=== PATIENT | male | born 1950 | race Caucasian/White ===

== ENCOUNTER 2017-03-15 06:10 | Day surgery (SDC) | payer OTHER ==
[~2017-03-15] VITALS: Ht 170.2 cm; Wt 74.8 kg
[~2017-03-15 06:10] MED LIST: CYCL10TA PO; DURA75DI2 TOP; LORA1TAB12 PO; LYRI150C PO; LYRI200C PO; VITA100054 PO
[2017-03-15] MEDS ORDERED: LR 1,000 ML IV ONE (06:30)
[2017-03-15] MEDS ORDERED: LIDOCAINE 1% MDV 20ML VIAL SC ONE (06:30)
[2017-03-15] MEDS ORDERED: THROMBIN SOLN 5,000 UNITS VIAL As Ordered ONE (07:08)
[2017-03-15] MEDS ORDERED: EPINEPHrine 1MG/10ML SYRINGE 1.5IN As Ordered ONE (07:09)
[2017-03-15] MEDS ORDERED: LIDOCAINE 1% SDV INJ 30 ML VIAL As Ordered ONE (07:09)
[2017-03-15] MEDS ORDERED: LIDOCAINE VISCOUS 2% SOLN 15ML UDC As Ordered ONE (07:09)
[2017-03-15] MEDS ORDERED: CETACAINE SPRAY 20GM (FLOOR STOCK) As Ordered ONE (07:47)
[2017-03-15] MEDS ORDERED: MIDAZOLAM INJ 2 MG/2 ML VIAL (J2250) As Ordered ONE (07:53)
[2017-03-15] MEDS ORDERED: ONDANSETRON 4MG/2ML VIAL (J2405) As Ordered ONE (07:53)
[2017-03-15] MEDS ORDERED: PROPOFOL 200 MG/20 ML VIAL As Ordered ONE (07:53)
[2017-03-15] MEDS ORDERED: fentaNYL 100 MCG/2 ML INJECTION (J3010) As Ordered ONE (07:53)
[2017-03-15] MEDS ORDERED: LIDOCAINE 2% INJ 100 MG/5 ML SDV (FOR ANES.) As Ordered ONE (07:53)
[2017-03-15] MEDS ORDERED: ROCURONIUM BROMIDE 50 MG/5 ML VIAL/SYRINGE As Ordered ONE (07:53)
[2017-03-15] MEDS ORDERED: NEOSTIGMINE 1MG/ML 5 ML SYRINGE (J2710) As Ordered ONE (07:59)
[2017-03-15] MEDS ORDERED: GLYCOPYRROLATE INJ 0.2 MG/ML 2 ML VIAL As Ordered ONE (07:59)
[2017-03-15] MEDS ORDERED: PHENYLephrine HCL 500 MCG/5 ML (100MCG/ML) SYRINGE (J2370) As Ordered ONE ×2 (08:00→08:02)
[2017-03-15] MEDS ORDERED: ePHEDrine SULFATE 25 MG/5 ML(5MG/ML) SYRINGE As Ordered ONE ×2 (08:00→08:02)
[2017-03-15] MEDS ORDERED: SUGAMMADEX SODIUM 500 MG/5 ML VIAL (BRIDION) As Ordered ONE (08:17)
--- NOTE | 2017-03-15 08:59 | RO ---
DATE OF PROCEDURE: 03/15/2017 PREOPERATIVE DIAGNOSIS: Right hilar right upper lobe mass, abnormal chest CT. POSTOPERATIVE DIAGNOSIS: Right upper lobe mass. FINDINGS: Obstructed right upper lobe. PROCEDURE: Bronchoscopy with endobronchial ultrasound and fine-needle aspiration. PROCEDURALIST: Clinton Bernal DO DOCUMENT CONTROL SUPERVISOR: None. ANESTHESIA: General. Please refer to their records for details. ESTIMATED BLOOD LOSS: 5-10 mL. DRAINS: No drains. SPECIMENS OBTAINED: 1. FNA right upper lobe mass. 2. Endobronchial biopsies right upper lobe mass. No observed complications. Postprocedure chest x-ray pending. DESCRIPTION OF PROCEDURE: Consent was reviewed with the patient in the preoperative area. After the risks and benefits of the procedure were discussed in detail again with the patient, he re-consented for the procedure. He was then taken back to OR number [id number]. A time out was performed with two patient identifiers, identifying correct site and correct procedure. General anesthesia was initiated with an 8.5 endotracheal tube. Cetacaine spray was used to lubricate the tube and provide airway anesthetization. 1T180 bronchoscope was then introduced into the endotracheal tube after a second time out identifying correct site and correct procedure, with two patient identifiers. The alexi was fairly sharp. There was abnormalities in the trachea. There was, on the right lateral wall, a distal tumor was seen. The right mainstem bronchus was patent however, the entire right upper lobe was obstructed with mass. This mass did extend over the spur between the right upper lobe and the bronchus intermedius and up into the lateral portion of the right trachea. RB 4 and 5 were patent without endobronchial lesions. RB 6 through 10 were patent without endobronchial lesions. Left mainstem bronchus was normal. LB 1 through 3 was normal without endobronchial lesions. LB 4 and 5 was totally obstructed, I presume it was the area of his prior malignancy. There was pale mucosa surrounding the area. No evidence of tumor extruding from the area. LB 6 through 10 was patent without endobronchial lesions. Due to the vascularity of the right upper lobe mass, I decided to do endobronchial ultrasound with FNA first. Therefore, the 1T180 bronchoscope was removed. The endobronchial ultrasound was inserted. I obtained FNA samples of the right upper lobe mass with on-site cytology suggesting adequate sampling. Tissue was obtained for cell block. After adequate sampling the endobronchial ultrasound was removed and the one 1T180 bronchoscope was reinserted. Hemostasis was assured. I then performed endobronchial biopsies of the right upper lobe mass. After seven endobronchial biopsies, hemostasis was assured and the bronchoscope was removed. The patient was extubated and is in recovery. Postprocedure chest x-ray is pending. There was no observed complications. [facility]
[2017-03-15] MEDS ORDERED: ONDANSETRON 4MG/2ML VIAL (J2405) IV PRN (09:00)
[2017-03-15] MEDS ORDERED: LR 1,000 ML IV SCH (09:00)
[2017-03-15] MEDS ORDERED: fentaNYL 100 MCG/2 ML INJECTION (J3010) IV PRN (09:00)
[2017-03-15 09:06] VITALS: BP 133/68
--- NOTE | 2017-03-15 09:13 | REP ---
Sitting upright portable chest x-ray: Single view. History: Postop in PACU. Findings: An Ajgjtw-C-Oiin catheter is seen in place via the left side with its tip in the expected location of the superior vena cava. Oxygen delivery tubing and EKG monitoring electrodes are seen. There is elevation of the left hemidiaphragm and volume loss in the left hemithorax. A ill-defined soft tissue fullness is seen in the left perihilar region with fibrotic appearing parenchymal markings in the perihilar region. There are similar less prominent changes in the right upper lobe. There is no evidence of pneumothorax or hydrothorax. Cardiomediastinal silhouette is unremarkable. Impression: Bilateral upper lobe perihilar opacities and left perihilar fullness. Volume loss left hemithorax. No complication identified. Signed by Lamine Rocha MD 03/15/2017 09:32 A
--- NOTE | 2017-03-15 21:11 | ECGEPIP ---
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
== END 2017-03-15 09:51 | disposition home or self-care (01) ==
LOC: M SDC 06:10
PROVIDERS: ATTEND Internal Medicine Pulmonary Disease
DX: C34.10 Malignant neoplasm of upper lobe, unspecified bronchus or lung (principal); R06.00 Dyspnea, unspecified; R05 Cough; R94.2 Abnormal results of pulmonary function studies; I27.2 Other secondary pulmonary hypertension; Z87.891 Personal history of nicotine dependence; I10 Essential (primary) hypertension; M54.5 Low back pain; E78.5 Hyperlipidemia, unspecified; M51.9 Unspecified thoracic, thoracolumbar and lumbosacral intervertebral disc disorder; M19.049 Primary osteoarthritis, unspecified hand; J44.9 Chronic obstructive pulmonary disease, unspecified; Z86.711 Personal history of pulmonary embolism; Z92.3 Personal history of irradiation; Z91.030 Bee allergy status; Z79.899 Other long term (current) drug therapy
CPT/HCPCS: 31652; 71010; 88173; 88305; 88313; 88341; 88342; 93005; J2250; J2370; J2405; J3010

== ENCOUNTER → 2017-04-23 | Outpatient (REF) | payer OTHER | LOC: M LAB REF 10:41 | PROVIDERS: ATTEND Internal Medicine | DX: C34.90 Malignant neoplasm of unspecified part of unspecified bronchus or lung (principal) ==

== ENCOUNTER → 2017-10-24 | Outpatient (REF) | payer OTHER | LOC: M LAB REF 10:24 | DX: C34.90 Malignant neoplasm of unspecified part of unspecified bronchus or lung (principal) | CPT/HCPCS: 88300 ==